=== PATIENT | female | born 1980 | race Caucasian/White ===

== ENCOUNTER 2019-09-21 07:01 | Inpatient (IN) | payer MEDICAID ==
[2019-09-21] MEDS ORDERED: Nalbuphine 10 MG/ML Syringe IVPUSH PRN (07:52)
[2019-09-21] MEDS ORDERED: Acetaminophen 325 MG Tab PO PRN ×2 (07:52→23:09)
[2019-09-21] MEDS ORDERED: Sodium Chloride 0.9% 10 ML Syringe FLUSH PRN (07:52)
[2019-09-21] MEDS ORDERED: Oxytocin/Lactated Ringers 10 UNIT/1,000 ML BAG IV SCH ×2 (08:00→23:15)
[2019-09-21] MEDS: Lactated Ringers 1,000 ML IV SCH ×3 (08:16→21:40)
--- NOTE | 2019-09-21 08:26 | PCM.LDHP ---
L&D History of Present Illness - General Admit Problem/Dx: Patient Status Order with Admit Dx/Problem 09/21/19 07:52 Patient Status [ADT] Routine Admission Diagnosis/Problem Admission Diagnosis/Problem 39 weeks gestation of Source of Information: Patient History Limitations: Reports: No Limitations - History of Present Illness Introduction:: Kathy Ty is a 38 year old -0-0-3 at 39 weeks 0 days by a 6-week ultrasound ([facility] 09/28/2019) who presents for elective induction of labor. She reports that since her last visit she has had some occasional contractions but nothing regular or consistent. Denies any significant pain or strong contractions when she did have these. Denies any leaking of fluid or vaginal bleeding. Reports that she did have some bloody show a couple of days ago but nothing consistent or regular. Reports good movement. Timing/Duration: Reports: intermittent Location, : Reports: Pelvic Quality: Reports: Dull Severity: Mild Pain Score: 0 Associated Symptoms: Denies: vaginal bleeding, vaginal discharge, vaginal fluid Present Illness Comments:: Kathy Ty is a 38 year old -0-0-3 at 39 weeks 0 days by a 6-week ultrasound ([facility] 09/28/2019) who presents for elective induction of labor. She has had routine care with Dr. Moss starting at 9 weeks gestational age. She has been seeing myself for the last month while he has been out of the office. She declined influenza vaccine during the . She received Tdap vaccine on 07/21/2019. Her has been overall uncomplicated. Her has been complicated by: * Advanced maternal age -patient currently age 38 for this and had [employer] genetic screening testing that was normal. * GBS positive -patient with positive GBS swab on exam on 09/07/2019. Plan for ampicillin for antibiotic prophylaxis during induction * Rh- blood type -patient with O- blood type and received RhoGam on 07/07/2019 * Anxiety and depression -patient currently on Lexapro 10 mg daily, reports that she has not been taking it consistently and will miss occasional days here and there. Reports that her symptoms are well controlled at this time. labs Blood type: O- Antibody screen: Negative First trimester hematocrit/hemoglobin: 39.4%/12.8 on 02/23/2019 Platelets: 381 on 02/23/2019 Urine culture: Mixed donavon suggestive of contamination Rubella status: Immune Hepatitis B surface antigen: Negative RPR: Negative HIV: Negative Gonorrhea: Negative Chlamydia: Negative Genetic testing: Normal [facility] genetic screening testing Anatomy ultrasound: Normal anatomy ultrasound, posterior placenta, no previa, 41st percentile at anatomy ultrasound on 05/10/2019 One hour glucose tolerance test: 99 Second trimester hematocrit/hemoglobin: 34.5%/10.9 on 07/07/2019 Platelets: 400 on 07/07/2019 GBS status: Positive on swab on 09/07/2019 - Related Data Allergies/Adverse Reactions: Allergies Allergy/AdvReac Type Severity Reaction Status Date / Time No Known Allergies Allergy Verified 04/20/18 17:40 Home Medications: Home Meds Clindamycin Phosphate 1 dose TOP DAILY 04/20/18 [History] Escitalopram [Lexapro] 10 mg PO DAILY 04/20/18 [History] Minocycline [Minocin] 100 mg PO DAILY 04/20/18 [History] buPROPion [buPROPion XL] 150 mg PO DAILY 04/20/18 [History] desogestreL-ethinyl estradioL [Juleber 28 Day Tablet] 1 tab PO DAILY 04/20/18 [ History] Past Medical History - Past Health History Medical/Surgical History: Denies 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: : 4 Para: 3 Psychiatric History: Reports: Anxiety, Depression Dermatologic History: Reports: Other (See Below) Other Dermatologic History: acne vulgaris Social & Family History - Family History Family Medical History: Noncontributory - Tobacco Use Smoking Status *Q: Never Smoker - Tobacco Core Measures Tobacco Use/Smoking Within Last 30 Days: No Smokeless Tobacco Use in Last 30 Days: No - Caffeine Use Caffeine Use: Reports: Coffee - Alcohol Use Alcohol Use History: No Alcohol Use in Last Twelve Months: No - Recreational Drug Use Recreational Drug Use: No Drug Use in Last 12 Months: No - Living Situation & Occupation Living situation: Reports: Single H&P Review of Systems - Review of Systems: Review Of Systems: See Below General: Denies: Fever, Chills, Malaise, Weakness, Fatigue HEENT: Denies: Headaches, Rhinitis, Post Nasal Drip, Sinus Congestion, Sore Throat, Visual Changes Pulmonary: Denies: Shortness of Breath, Wheezing, Pleuritic Chest Pain, Cough Cardiovascular: Denies: Chest Pain, Palpitations, Dyspnea on Exertion, Orthopnea Gastrointestinal: Denies: Abdominal Pain, Constipation, Diarrhea, Nausea, Vomiting Genitourinary: Denies: Dysuria, Frequency, Burning, Pain, Urgency Musculoskeletal: Reports: Back Pain (and hip pain of ) Skin: Denies: Rash, Lesions Psychiatric: Denies: Depression, Anxiety Hematologic/Lymphatic: Denies: Anemia L&D Exam - Exam Exam: See Below - Vital Signs Vital Signs: Last Vital Signs Temp 36.7 C 09/21/19 07:23 Pulse 83 09/21/19 07:23 Resp 18 09/21/19 07:23 BP 128/84 09/21/19 07:23 Pulse Ox 100 09/21/19 07:23 Weight: 82.1 kg - OB Specific Contraction Duration (sec): 0 Contraction Frequency (min): 0 Contraction Intensity: Irritability Movement: Active Heart Tones: Present Heart Tones per Min: 135 (+15 x 15 accelerations, no decelerations) Heart Rate (FHR) Variability: Moderate (6-25 bmp) Presentation: Vertex Estimated Weight: 7 to 7.5 pounds by Eduardo's - Li Score Li Score Cervix Position: Posterior Li Score Consistency: Medium Li Score Effacement: 51-70% (70%) Li Score Dilation: 1-2 cm (2.5 cm) Li Score Infant's Station: -3 (-4) Li Score Total: 4 - Exam General: Alert, Oriented HEENT: Conjunctiva Clear, EOMI Neck: Supple, Trachea Midline Lungs: Clear to Auscultation, Normal Respiratory Effort Cardiovascular: Regular Rate, Regular Rhythm GI/Abdominal Exam: Soft, Non-Tender, No Distention, Other (gravid). No: Guarding, Rigid, Rebound Genitourinary: Normal external exam Extremities: Normal Inspection, No Pedal Edema Skin: Warm, Dry, Intact Psychiatric: Alert, Normal Affect, Normal Mood - Problem List (1) 39 weeks gestation of SNOMED Code(s): 38506869 ICD Code: Z3A.39 - 39 WEEKS GESTATION OF Status: Acute Current Visit: Yes (2) GBS (group B Streptococcus carrier), +RV culture, currently SNOMED Code(s): 4836170920861, 014972519, 4755523963664 ICD Code: O99.820 - STREPTOCOCCUS B CARRIER STATE COMPLICATING Status: Acute Current Visit: Yes (3) Anxiety SNOMED Code(s): 09018214 ICD Code: F41.9 - ANXIETY DISORDER, UNSPECIFIED Status: Acute Current Visit: Yes (4) Depression SNOMED Code(s): 73608572 ICD Code: F32.9 - MAJOR DEPRESSIVE DISORDER, SINGLE EPISODE, UNSPECIFIED Status: Acute Current Visit: Yes (5) Advanced maternal age in multigravida SNOMED Code(s): 952752766 ICD Code: O09.529 - SUPERVISION OF ELDERLY MULTIGRAVIDA, UNSPECIFIED TRIMESTER Status: Acute Current Visit: Yes Problem List Initiated/Reviewed/Updated: Yes Orders Last 24hrs: Active Orders 24 hr Category Date Time Status Patient Status [ADT] Routine ADT 09/21/19 07:52 Ordered Activity as Tolerated [RC] PFP Care 09/21/19 07:52 Ordered Communication Order [RC] ASDIRECTED Care 09/21/19 07:52 Ordered Heart Tones [RC] ASDIRECTED Care 09/21/19 07:53 Ordered Non Stress Test [RC] PER UNIT ROUTINE Care 09/21/19 07:52 Ordered Notify Provider Vital Signs [RC] PRN Care 09/21/19 07:54 Ordered Notify Provider [RC] PFP Care 09/21/19 07:52 Ordered Notify Provider [RC] PRN Care 09/21/19 07:52 Ordered Peripheral IV Care [RC] . DIRECTED Care 09/21/19 07:53 Ordered Pump Management, Intrathecal [RC] ASDIRECTED Care 09/21/19 07:54 Ordered Vital Signs [RC] PER UNIT ROUTINE Care 09/21/19 07:52 Ordered Regular Diet [DIET] Diet 09/21/19 Breakfast Ordered CBC WITH AUTO DIFF [HEME] Routine Lab 09/21/19 07:52 Ordered RAPID PLASMA REAGIN,RPR [CHEM] Routine Lab 09/21/19 07:52 Ordered Acetaminophen [Tylenol] Med 09/21/19 07:52 Ordered 650 mg PO Q6H PRN Ampicillin 1 gm Med 09/21/19 08:00 Ordered Sodium Chloride 0.9% [Normal Saline] 100 ml IV Q4H Ampicillin 2 gm Med 09/21/19 07:52 Ordered Sodium Chloride 0.9% [Normal Saline] 100 ml IV ONETIME Lactated Ringers [Ringers, Lactated] 1,000 ml Med 09/21/19 08:00 Ordered IV ASDIRECTED Nalbuphine [Nubain] Med 09/21/19 07:52 Ordered 10 mg IVPUSH Q2H PRN Oxytocin/Lactated Ringers [Pitocin in LR 10 Units/1,000 Med 09/21/19 08:00 Ordered ML] 10 unit in 1,000 ml IV .CONTINUOUS Oxytocin/Lactated Ringers [Pitocin in LR 10 Units/1,000 Med 09/21/19 08:00 Ordered ML] 10 unit in 1,000 ml IV TITRATE Sodium Chloride 0.9% [Saline Flush] Med 09/21/19 07:52 Ordered 10 ml FLUSH ASDIRECTED PRN Electronic Heart Tones Ext w TOCO [WOMSER] Oth 09/21/19 07:52 Ordered Routine Electronic Heart Tones Internal [WOMSER] Per Unit Ot 09/21/19 07:52 Ordered Routine Peripheral IV Insertion Adult [OM.PC] Routine Oth 09/21/19 07:52 Ordered Resuscitation Status Routine Resus Stat 09/21/19 07:52 Ordered Medication Orders Acetaminophen (Tylenol) 650 mg PO Q6H PRN PRN Reason: Pain (Mild 1-3) and fever Ampicillin Sodium 2 gm/ Sodium (Chloride) 100 mls @ 200 mls/hr IV ONETIME ONE Stop: 09/21/19 08:59 Ampicillin Sodium 1 gm/ Sodium (Chloride) 100 mls @ 200 mls/hr IV Q4H MUNDO Lactated Ringer's (Ringers, Lactated) 1,000 mls @ 100 mls/hr IV ASDIRECTED MUNDO Last Admin: 09/21/19 08:16 Dose: 100 mls/hr Oxytocin/Lactated Ringer's (Pitocin In Lr 10 Units/1,000 Ml) 10 unit in 1,000 mls @ 12 mls/hr IV TITRATE MUNDO; Protocol Oxytocin/Lactated Ringer's (Pitocin In Lr 10 Units/1,000 Ml) 10 unit in 1,000 mls @ 100 mls/hr IV .CONTINUOUS MUNDO Nalbuphine HCl (Nubain) 10 mg IVPUSH Q2H PRN PRN Reason: Pain Sodium Chloride (Saline Flush) 10 ml FLUSH ASDIRECTED PRN PRN Reason: Keep Vein Open Assessment/Plan Comment:: Refer to observation for elective induction of labor Start Pitocin for induction of labor approximately 1 hour after starting ampicillin for GBS prophylaxis Continuous monitoring Place IV and have Lactated Ringer's at 125 ml/hr May have small amounts of regular diet Activity as tolerated May have epidural as desired Plans to breast-feed after delivery Start on ampicillin 2 g now and have 1 g every 4 hours after for GBS prophylaxis Patient may take her own Lexapro 10 mg daily for depression Anticipate vaginal delivery unless otherwise indicated José Antoino Hannah MD 8:34 AM 09/21/2019
[2019-09-21] MEDS ORDERED: Ampicillin 2 GM in Sodium Chloride 0.9% 100 ML IV ONE (08:30)
[2019-09-21] MEDS: Oxytocin/Lactated Ringers 10 UNIT/1,000 ML BAG IV SCH ×2 (09:19→21:30)
[2019-09-21] MEDS ORDERED: ePHEDrine 50 MG/ML SDV IVPUSH PRN (09:25)
[2019-09-21] MEDS ORDERED: Ondansetron 4 MG/2 ML SDV IVPUSH PRN (09:25)
[2019-09-21] MEDS ORDERED: fentaNYL 100 MCG/2 ML SDV EPIDUR PRN (09:25)
--- NOTE | 2019-09-21 09:27 | PCM.PREANE ---
Preanesthetic Assessment - Anesthesia/Transfusion/Family Hx Anesthesia History: Prior Anesthesia Without Reaction Family History of Anesthesia Reaction: No Transfusion History: No Prior Transfusion(s) Intubation History: Unknown - Review of Systems General: No Symptoms Pulmonary: No Symptoms Cardiovascular: No Symptoms Gastrointestinal: No Symptoms (GERD) Neurological: No Symptoms Other: Reports: None, Depression, Anxiety - Physical Assessment NPO Status Date: 09/21/19 NPO Status Time: 10:30 Vital Signs: Last Vital Signs Temp 36.7 C 09/21/19 07:23 Pulse 83 09/21/19 07:23 Resp 18 09/21/19 07:23 BP 128/84 09/21/19 07:23 Pulse Ox 100 09/21/19 07:23 Height: 1.7 m Weight: 82.1 kg ASA Class: 2 Mental Status: Alert & Oriented x3 Airway Class: Mallampati = 2 Dentition: Reports: Normal Dentition, Caries Thyro-Mental Finger Breadths: 3 Mouth Opening Finger Breadths: 3 ROM/Head Extension: Full Lungs: Clear to Auscultation, Normal Respiratory Effort Cardiovascular: Regular Rate, Regular Rhythm, No Murmurs - Lab Values: Laboratory Last Values WBC 10.04 K/mm3 (3.98-10.04) 09/21/19 08:05 RBC 4.16 M/mm3 (3.98-5.22) 09/21/19 08:05 Hgb 9.8 gm/dl (11.2-15.7) L 09/21/19 08:05 Hct 31.5 % (34.1-44.9) L 09/21/19 08:05 MCV 75.7 fl (79.4-94.8) L 09/21/19 08:05 MCH 23.6 pg (25.6-32.2) L 09/21/19 08:05 MCHC 31.1 g/dl (32.2-35.5) L 09/21/19 08:05 RDW Std Deviation 42.0 fL (36.4-46.3) 09/21/19 08:05 Plt Count 373 K/mm3 (182-369) H 09/21/19 08:05 MPV 9.6 fl (9.4-12.3) 09/21/19 08:05 Neut % (Auto) 65.8 % (34.0-71.1) 09/21/19 08:05 Lymph % (Auto) 23.1 % (19.3-51.7) 09/21/19 08:05 Worth % (Auto) 7.5 % (4.7-12.5) 09/21/19 08:05 Eos % (Auto) 2.9 (0.7-5.8) 09/21/19 08:05 Baso % (Auto) 0.2 % (0.1-1.2) 09/21/19 08:05 Neut # (Auto) 6.61 K/mm3 (1.56-6.13) H 09/21/19 08:05 Lymph # (Auto) 2.32 K/mm3 (1.18-3.74) 09/21/19 08:05 Worth # (Auto) 0.75 K/mm3 (0.24-0.36) H 09/21/19 08:05 Eos # (Auto) 0.29 K/mm3 (0.04-0.36) 09/21/19 08:05 Baso # (Auto) 0.02 K/mm3 (0.01-0.08) 09/21/19 08:05 Above labs reviewed and noted and within acceptable ranges to proceed with epidural if desired. - Allergies Allergies/Adverse Reactions: Allergies Allergy/AdvReac Type Severity Reaction Status Date / Time No Known Allergies Allergy Verified 04/20/18 17:40 - Anesthesia Plan Pre-Op Medication Ordered: None - Acknowledgements Anesthesia Type Planned: Epidural Pt an Appropriate Candidate for the Planned Anesthesia: Yes Alternatives and Risks of Anesthesia Discussed w Pt/Guardian: Yes Pt/Guardian Understands and Agrees with Anesthesia Plan: Yes PreAnesthesia Questionnaire - Past Health History Medical/Surgical History: Denies Medical/Surgical History RN TRANSITIONAL History: Reports: Psychiatric History: Reports: Anxiety, Depression Dermatologic History: Reports: Other (See Below) Other Dermatologic History: acne vulgaris - SUBSTANCE USE Smoking Status *Q: Never Smoker Tobacco Use Within Last Twelve Months: Cigarettes Second Hand Smoke Exposure: No Recreational Drug Use History: No - HOME MEDS Home Medications: Home Meds Clindamycin Phosphate 1 dose TOP DAILY 04/20/18 [History] Escitalopram [Lexapro] 10 mg PO DAILY 04/20/18 [History] Minocycline [Minocin] 100 mg PO DAILY 04/20/18 [History] buPROPion [buPROPion XL] 150 mg PO DAILY 04/20/18 [History] desogestreL-ethinyl estradioL [Juleber 28 Day Tablet] 1 tab PO DAILY 04/20/18 [ History] - CURRENT (IN HOUSE) MEDS Current Meds: Current Medications Acetaminophen (Tylenol) 650 mg PO Q6H PRN PRN Reason: Pain (Mild 1-3) and fever Ampicillin Sodium 1 gm/ Sodium (Chloride) 100 mls @ 200 mls/hr IV Q4H MUNDO Lactated Ringer's (Ringers, Lactated) 1,000 mls @ 100 mls/hr IV ASDIRECTED MUNDO Last Admin: 09/21/19 08:16 Dose: 100 mls/hr Oxytocin/Lactated Ringer's (Pitocin In Lr 10 Units/1,000 Ml) 10 unit in 1,000 mls @ 12 mls/hr IV TITRATE MUNDO; Protocol Last Admin: 09/21/19 09:19 Dose: 2 munits/min, 12 mls/hr Oxytocin/Lactated Ringer's (Pitocin In Lr 10 Units/1,000 Ml) 10 unit in 1,000 mls @ 100 mls/hr IV .CONTINUOUS MUNDO Nalbuphine HCl (Nubain) 10 mg IVPUSH Q2H PRN PRN Reason: Pain Sodium Chloride (Saline Flush) 10 ml FLUSH ASDIRECTED PRN PRN Reason: Keep Vein Open Discontinued Medications Ampicillin Sodium 2 gm/ Sodium (Chloride) 100 mls @ 200 mls/hr IV ONETIME ONE Stop: 09/21/19 08:59 Last Admin: 09/21/19 08:18 Dose: 200 mls/hr
[2019-09-21] MEDS ORDERED: Bupivacaine/fentaNYL/NS 100 ML Bag EPIDUR SCH (09:30)
[2019-09-21] MEDS: Ampicillin 1 GM in Sodium Chloride 0.9% 100 ML IV SCH ×3 (12:25→20:20)
--- NOTE | 2019-09-21 13:45 | PCM.PNLD ---
Labor Progress Note - VS & Meds Vital Signs: Last Vital Signs Temp 36.7 C 09/21/19 07:23 Pulse 83 09/21/19 07:23 Resp 18 09/21/19 07:23 BP 128/84 09/21/19 07:23 Pulse Ox 100 09/21/19 07:23 Active Medications: Current Medications Acetaminophen (Tylenol) 650 mg PO Q6H PRN PRN Reason: Pain (Mild 1-3) and fever Ephedrine Sulfate (Ephedrine Sulfate) 5 mg IVPUSH ASDIRECTED PRN PRN Reason: Hypotension Fentanyl (Sublimaze) 100 mcg EPIDUR Q3H PRN PRN Reason: Pain Fentanyl/Bupivacaine HCl (Fentanyl/Bupivacaine/Ns 2 Mcg-0.125% 100 Ml) 100 ml EPIDUR ASDIRECTED MUNDO Ampicillin Sodium 1 gm/ Sodium (Chloride) 100 mls @ 200 mls/hr IV Q4H MUNDO Last Admin: 09/21/19 12:25 Dose: 200 mls/hr Lactated Ringer's (Ringers, Lactated) 1,000 mls @ 100 mls/hr IV ASDIRECTED MUNDO Last Admin: 09/21/19 08:16 Dose: 100 mls/hr Oxytocin/Lactated Ringer's (Pitocin In Lr 10 Units/1,000 Ml) 10 unit in 1,000 mls @ 12 mls/hr IV TITRATE MUNDO; Protocol Last Titration: 09/21/19 13:16 Dose: 12 munits/min, 72 mls/hr Oxytocin/Lactated Ringer's (Pitocin In Lr 10 Units/1,000 Ml) 10 unit in 1,000 mls @ 100 mls/hr IV .CONTINUOUS MUNDO Nalbuphine HCl (Nubain) 10 mg IVPUSH Q2H PRN PRN Reason: Pain Ondansetron HCl (Zofran) 4 mg IVPUSH ONETIME PRN PRN Reason: Nausea/Vomiting Sodium Chloride (Saline Flush) 10 ml FLUSH ASDIRECTED PRN PRN Reason: Keep Vein Open Discontinued Medications Ampicillin Sodium 2 gm/ Sodium (Chloride) 100 mls @ 200 mls/hr IV ONETIME ONE Stop: 09/21/19 08:59 Last Admin: 09/21/19 08:18 Dose: 200 mls/hr - Uterine Contractions Uterine Monitoring Mode: External Guttenberg Contraction Frequency (min): 1-2 Contraction Duration (sec): 45 Contraction Intensity: Mild to Moderate Uterine Resting Tone: Soft - Monitoring Monitor Mode: Doppler/Auscultation Heart Rate (FHR) Baseline: 130 Heart Rate (FHR) Per Doppler: 130 Heart Rate (FHR) Variability: Moderate (6-25 bmp) Accelerations: Present, 15x15 Decelerations: None Strip Review: Category I - Vaginal Exam Dilation (cm): 3.5 Effacement (Percent): 80 Station: -3 Cervical Position: Anterior Sterile Vaginal Exam Performed By: José Antonio Hannah Vaginal Exam Comment: Artificial rupture membranes with return of clear fluid. Mother and tolerated procedure without difficulty. - Labor Progress (Free Text) Labor Progress: Patient continuing to make progression with induction of labor Continue ampicillin for GBS prophylaxis Continue Pitocin for induction of labor Routine vitals Continues monitoring now that she has had artificial rupture of membranes Clear fluid on artificial rupture membranes performed Patient may have epidural for anesthesia if desired, patient may also use other forms of anesthesia as desired Anticipate vaginal delivery unless otherwise indicated José Antonio Hannah MD 1:44 PM 09/21/2019
[2019-09-21] MEDS ORDERED: Lidocaine 1% 50 ML MDV ONE (22:32)
[2019-09-21] MEDS ORDERED: Lidocaine 1% 10 ML MDV INJECT ONE (22:51)
[2019-09-21] MEDS ORDERED: Hydrocortisone Acetate 25 MG Supp RECTAL PRN (23:09)
[2019-09-21] MEDS ORDERED: Witch Hazel Medicated Pads 40/Jar TOP PRN (23:09)
[2019-09-21] MEDS ORDERED: Benzocaine/Menthol 20%-0.5% Spray 56 GM Canister TOP PRN (23:09)
[2019-09-21] MEDS ORDERED: Magnesium Hydroxide 400 MG/5 ML Susp 30 ML Cup PO PRN (23:09)
[2019-09-21] MEDS ORDERED: Docusate Sodium 100 MG Cap PO PRN (23:09)
[2019-09-21] MEDS ORDERED: Lanolin 100% Cream 7 GM Tube TOP PRN (23:09)
--- NOTE | 2019-09-21 23:13 | PCM.DEL ---
L & D Note - General Info Date of Service: 09/21/19 Mother's Due Date: 09/28/19 - Delivery Note Labor: Augmented by ARM, Induced by Oxytocin Cervical Ripening Method: Oxytocin Delivery Method: Spontaneous Vaginal Delivery-Single Presentation: Right Occiput Anterior (PATRICIA) Nuchal Cord: Present (x1, not reduced prior to delivery) Prep: Povidone-Iodine (Betadine Anesthesia Type: Local Anesthetic: Lidocaine (Xylocaine) 1% Plain Local Anesthetic Volume: Other (20 mL) Amniotic Fluid Description: Clear Episiotomy Type: None Laceration: 2nd Degree (midline perineal laceration, repaired with 3-0 Vicryl) Suture type: Vicryl Suture size: 3-0 Placenta: Intact, Spontaneous Cord: 3 Vessels Estimated Blood Loss: 300 Resuscitation Needed: Yes : Bulb Syringe, Stimulated, Warmed, [place] Used, Warmer Used Provider: José Antonio Hannah Score 1 min: 8 Score 5 min: 9 Second Stage Interventions: Reports: Pushing, Pulls Own Legs Back Delivery Comments (Free Text/Narrative):: Stage I: Kathy Ty was admitted for elective induction of labor. On admission her cervix was dilated to 2.5 cm. She was GBS positive and was started on ampicillin for GBS prophylaxis. She received a total of 3 doses prior to delivery. She was started on Pitocin for induction of labor. She had artificial rupture of membranes with return of clear fluid. She progressed to complete and pushing. Stage II: On 09/21/2019 she had a normal vaginal delivery of a live male infant at 22:30. Apgars of 8 & 9. Weight of 3130 g (6 lbs 14.4 oz). Length of 20 inches. There was a single nuchal cord that was not reduced prior to delivery. was delivered in PATRICIA position. The cord was doubly clamped and cut by grandmother of the . was placed on mother's abdomen. Stage III: She had a spontaneous delivery of an intact placenta in [place] presentation. Three vessel cord. She was given pitocin and fundal massage. She had a second-degree midline perineal laceration. She had injection of 1% lidocaine for local anesthesia during the repair. The laceration was repaired with 3-0 Vicryl. Mom and baby were stable to recovery. EBL of 300 mL. José Antonio Hannah MD 11:09 PM 09/21/2019 Induction Criteria - Li Score Li Score Dilation: 1-2 cm Li Score Effacement: 60-70% Li Score Infant's Station: -3 Li Score Consistency: Medium Li Score Cervix Position: Posterior Li Score Total: 4 Li Score Presenting Part: Reports: Cephalic - Induction Gestational Age >/= 39 wks: Yes Estimated Pelvis: Reports: Adequate Reassuring Monitoring Strip: Yes Absence of Tachy Systole: Yes - Augmentation Estimated Pelvis: Reports: Adequate Weight Estimated:: Reports: AGA Reassuring Monitoring Strip: Yes Absence of Tachy Systole: Yes - General Info Date of Service: 09/21/19 - Patient Data Vitals - Most Recent: Last Vital Signs Temp 36.7 C 09/21/19 07:23 Pulse 83 09/21/19 07:23 Resp 18 09/21/19 07:23 BP 128/84 09/21/19 07:23 Pulse Ox 100 09/21/19 07:23 Weight - Most Recent: 82.1 kg I&O - Last 24 Hours: Intake & Output 09/21/19 09/21/19 09/22/19 14:59 22:59 06:59 Intake Total 520 3520 Balance 520 3520 Lab Results Last 24 Hours: Laboratory Results - last 24 hr 09/21/19 09/21/19 Range/Units 08:05 08:05 WBC 10.04 (3.98-10.04) K/mm3 RBC 4.16 (3.98-5.22) M/mm3 Hgb 9.8 L (11.2-15.7) gm/dl Hct 31.5 L (34.1-44.9) % MCV 75.7 L (79.4-94.8) fl MCH 23.6 L (25.6-32.2) pg MCHC 31.1 L (32.2-35.5) g/dl RDW Std Deviation 42.0 (36.4-46.3) fL Plt Count 373 H (182-369) K/mm3 MPV 9.6 (9.4-12.3) fl Neut % (Auto) 65.8 (34.0-71.1) % Lymph % (Auto) 23.1 (19.3-51.7) % [place] % (Auto) 7.5 (4.7-12.5) % Eos % (Auto) 2.9 (0.7-5.8) Baso % (Auto) 0.2 (0.1-1.2) % Neut # (Auto) 6.61 H (1.56-6.13) K/mm3 Lymph # (Auto) 2.32 (1.18-3.74) K/mm3 [place] # (Auto) 0.75 H (0.24-0.36) K/mm3 Eos # (Auto) 0.29 (0.04-0.36) K/mm3 Baso # (Auto) 0.02 (0.01-0.08) K/mm3 RPR Non-reactive (NONREACTIVE) Med Orders - Current: Current Medications Discontinued Medications Acetaminophen (Tylenol) 650 mg PO Q6H PRN PRN Reason: Pain (Mild 1-3) and fever Ephedrine Sulfate (Ephedrine Sulfate) 5 mg IVPUSH ASDIRECTED PRN PRN Reason: Hypotension Fentanyl (Sublimaze) 100 mcg EPIDUR Q3H PRN PRN Reason: Pain Fentanyl/Bupivacaine HCl (Fentanyl/Bupivacaine/Ns 2 Mcg-0.125% 100 Ml) 100 ml EPIDUR ASDIRECTED MUNDO Ampicillin Sodium 2 gm/ Sodium (Chloride) 100 mls @ 200 mls/hr IV ONETIME ONE Stop: 09/21/19 08:59 Last Admin: 09/21/19 08:18 Dose: 200 mls/hr Ampicillin Sodium 1 gm/ Sodium (Chloride) 100 mls @ 200 mls/hr IV Q4H [facility] Last Admin: 09/21/19 20:20 Dose: 200 mls/hr Lactated Ringer's (Ringers, Lactated) 1,000 mls @ 100 mls/hr IV ASDIRECTED MUNDO Last Admin: 09/21/19 21:40 Dose: 100 mls/hr Oxytocin/Lactated Ringer's (Pitocin In Lr 10 Units/1,000 Ml) 10 unit in 1,000 mls @ 12 mls/hr IV TITRATE MUNDO; Protocol Last Admin: 09/21/19 21:30 Dose: 20 munits/min, 120 mls/hr Oxytocin/Lactated Ringer's (Pitocin In Lr 10 Units/1,000 Ml) 10 unit in 1,000 mls @ 100 mls/hr IV .CONTINUOUS MUNDO Lidocaine HCl (Xylocaine 1%) Confirm Administered Dose 50 ml .ROUTE .STK-MED ONE Stop: 09/21/19 22:33 Last Admin: 09/21/19 22:35 Dose: 50 ml Lidocaine HCl (Xylocaine 1%) 50 ml INJECT ONETIME ONE Stop: 09/21/19 22:52 Nalbuphine HCl (Nubain) 10 mg IVPUSH Q2H PRN PRN Reason: Pain Last Admin: 09/21/19 21:25 Dose: 10 mg Ondansetron HCl (Zofran) 4 mg IVPUSH ONETIME PRN PRN Reason: Nausea/Vomiting Sodium Chloride (Saline Flush) 10 ml FLUSH ASDIRECTED PRN PRN Reason: Keep Vein Open - Problem List & Annotations (1) 39 weeks gestation of SNOMED Code(s): 34927115 Code(s): Z3A.39 - 39 WEEKS GESTATION OF Status: Acute Current Visit: Yes (2) GBS (group B Streptococcus carrier), +RV culture, currently SNOMED Code(s): 8916925263074, 516727721, 5014881328647 Code(s): O99.820 - STREPTOCOCCUS B CARRIER STATE COMPLICATING Status: Acute Current Visit: Yes (3) Anxiety SNOMED Code(s): 19825612 Code(s): F41.9 - ANXIETY DISORDER, UNSPECIFIED Status: Acute Current Visit: Yes (4) Depression SNOMED Code(s): 17280714 Code(s): F32.9 - MAJOR DEPRESSIVE DISORDER, SINGLE EPISODE, UNSPECIFIED Status: Acute Current Visit: Yes (5) Advanced maternal age in multigravida SNOMED Code(s): 919647638 Code(s): O09.529 - SUPERVISION OF ELDERLY MULTIGRAVIDA, UNSPECIFIED TRIMESTER Status: Acute Current Visit: Yes (6) Rh negative status during SNOMED Code(s): 725538248 Code(s): O26.899 - OTH RELATED CONDITIONS, UNSPECIFIED TRIMESTER; Z67.91 - UNSPECIFIED BLOOD TYPE, RH NEGATIVE Status: Acute Current Visit: Yes (7) Vaginal delivery SNOMED Code(s): 826519443 Code(s): O80 - ENCOUNTER FOR FULL-TERM UNCOMPLICATED DELIVERY Status: Acute Current Visit: Yes (8) Second degree perineal laceration during delivery SNOMED Code(s): 0519284 Code(s): O70.1 - SECOND DEGREE PERINEAL LACERATION DURING DELIVERY Status: Acute Current Visit: Yes - Problem List Review Problem List Initiated/Reviewed/Updated: Yes - My Orders Last 24 Hours: My Active Orders 09/21/19 07:52 Activity as Tolerated [RC] PFP Communication Order [RC] ASDIRECTED Vital Signs [RC] PER UNIT ROUTINE Nalbuphine [Nubain] 10 mg IVPUSH Q2H PRN Sodium Chloride 0.9% [Saline Flush] 10 ml FLUSH ASDIRECTED PRN Resuscitation Status Routine 09/21/19 07:53 Peripheral IV Care [RC] . DIRECTED 09/21/19 07:54 Pump Management, Intrathecal [RC] ASDIRECTED 09/21/19 08:00 Lactated Ringers [Ringers, Lactated] 1,000 ml IV ASDIRECTED Oxytocin/Lactated Ringers [Pitocin in LR 10 Units/1,000 ML] 10 unit in 1,000 ml IV .CONTINUOUS Oxytocin/Lactated Ringers [Pitocin in LR 10 Units/1,000 ML] 10 unit in 1,000 ml IV TITRATE 09/21/19 12:30 Ampicillin 1 gm Sodium Chloride 0.9% [Normal Saline] 100 ml IV Q4H 09/21/19 22:51 Lidocaine 1% [Xylocaine 1%] 50 ml INJECT ONETIME ONE 09/21/19 23:09 Patient Status [ADT] Routine Activity as Tolerated [RC] PER UNIT ROUTINE May Shower [RC] ASDIRECTED Notify Provider Vital Signs [RC] ASDIRECTED Vital Signs [RC] ASDIRECTED Acetaminophen [Tylenol] 650 mg PO Q6H PRN Benzocaine/Menthol [Dermoplast Pain Relief [place]] See Dose Instructions TOP ASDIRECTED PRN Docusate Sodium [Colace] 100 mg PO BID PRN Hydrocortisone Acetate [Anucort-HC] 25 mg RECTAL BID PRN Ibuprofen [Motrin] 600 mg PO Q6H PRN Lanolin [Lansinoh HPA] See Dose Instructions TOP ASDIRECTED PRN Magnesium Hydroxide [Milk of Magnesia] 30 ml PO BEDTIME PRN witch Femi [Tucks] 1 pad TOP ASDIRECTED PRN Assess Lochia [WOMSER] Per Unit Routine Assess Uterine Involution [WOMSER] Per Unit Routine Breast Pump [WOMSER] Per Unit Routine Ice Therapy [OM.PC] Per Unit Routine Medication Administration Instruction [OM.PC] Routine Perineal Care [OM.PC] Per Unit Routine Peripheral IV Discontinue [OM.PC] Routine Sitz Bath [OM.PC] Per Unit Routine 09/21/19 23:15 Oxytocin/Lactated Ringers [Pitocin in LR 10 Units/1,000 ML] 10 unit in 1,000 ml IV TITRATE Heat Therapy [OM.PC] PRN 09/21/19 Dinner Regular Diet [DIET] 09/22/19 05:11 CBC WITH AUTO DIFF [HEME] AM 09/22/19 07:00 Ferrous Sulfate 324 mg PO BIDMEALS 09/22/19 09:00 Vit with Ca/FA/Iron [ Plus Iron] 1 each PO DAILY 09/22/19 23:15 Heat Therapy [OM.PC] PRN - Plan Plan:: Admit to inpatient following normal spontaneous vaginal delivery Continue Pitocin per unit protocol following delivery of placenta and lactated Ringer's until tolerating regular diet Regular diet Vitals per unit routine Ibuprofen and Tylenol for pain control Assist with bottlefeeding as needed Continue to monitor lochia Mom with O- blood type. Plan for RhoGam administration if has Rh+ blood type. Anticipate discharge home on day #2 José Antonio Hannah MD 11:09 PM 09/21/2019
[2019-09-22] MEDS: Ibuprofen 600 MG Tab PO PRN ×2 (04:21→21:22)
[2019-09-22] MEDS: Prenatal Multivitamin with Calcium/Folic Acid/Iron Tab PO SCH (08:21)
[2019-09-22] MEDS: Ferrous Sulfate 324 MG Tab.EC PO SCH ×2 (08:24→19:33)
--- NOTE | 2019-09-22 09:24 | PCM.SN.2 ---
- Free Text/Narrative Note: Post Progress Note PPD #1 Subjective: Doing well overall. Ambulating without difficulty. Lochia minimal. Voiding without difficulty. Tolerating regular diet without nausea or vomiting. Pain controlled with oral medications. Bottlefeeding with minimal difficulty. She reports that the is spitting up occasionally with feeding. Objective: Vitals: Vital Signs - 8 hr 09/22/19 09/22/19 04:20 08:22 Temperature 36.8 C 36.8 C Pulse, 63 70 Peripheral Respiratory 16 16 Rate Blood Pressure 118/64 137/85 O2 Sat by Pulse 99 99 Oximetry Physical Exam General: Alert and oriented, no acute distress Lungs: Clear to auscultation bilaterally Heart: Regular rate and rhythm Abdomen: Soft, minimal appropriate tenderness, non-distended, fundus midline, nontender, and 1 fingerbreadth below the umbilicus Extremities: No edema ASSESSMENT: 38-year-old female -0-0-4 s/p normal vaginal delivery PPD #1, complicated by GBS positive and received 4 doses of antibiotic prior to delivery, Rh- blood type, anxiety and depression and advanced maternal age PLAN: Doing well Bottlefeeding with minimal difficulty. Assist as needed Lochia minimal. Continue to monitor for appropriate lochia. Continue routine care Patient with O- blood type and with O+ blood type. Patient to receive RhoGam prior to discharge Patient may take Lexapro 10 mg daily for her anxiety and depression Patient's hemoglobin this morning was at 9.2 which is a drop from 9.8 on admission. Patient is asymptomatic from this blood loss. Do not expect need for transfusion. Anticipate discharge home tomorrow secondary to late timing of delivery of José Antonio Hannah MD 9:22 AM 09/22/2019
--- NOTE | 2019-09-23 07:43 | PCM.SN.2 ---
- Free Text/Narrative Note: Post Progress Note PPD #2 Subjective: Doing well overall. Ambulating without difficulty. Lochia minimal. Voiding without difficulty. Tolerating regular diet without nausea or vomiting. Pain controlled with oral medications. Reports some mild cramping last evening but improved with ibuprofen. Bottlefeeding with minimal difficulty. Objective: Vitals: Vital Signs - 24 hr 09/22/19 09/22/19 09/22/19 08:22 13:20 18:37 Temperature 36.8 C 36.8 C 36.6 C Temperature [ Temporal] Pulse, 70 68 69 Peripheral Pulse, Peripheral [ Pulse Oximetry] Respiratory 16 16 15 Rate Blood Pressure 137/85 113/70 118/82 Blood Pressure [Upper Arm] O2 Sat by Pulse 99 98 99 Oximetry 09/22/19 09/22/19 09/23/19 18:42 21:15 03:46 Temperature 36.8 C 36.7 C Temperature [ 36.6 C Temporal] Pulse, 61 67 Peripheral Pulse, 69 Peripheral [ Pulse Oximetry] Respiratory 15 15 15 Rate Blood Pressure 126/72 126/88 Blood Pressure 118/82 [Upper Arm] O2 Sat by Pulse 98 99 100 Oximetry Physical Exam General: Alert and oriented, no acute distress Lungs: Clear to auscultation bilaterally Heart: Regular rate and rhythm Abdomen: Soft, minimal appropriate tenderness, non-distended, fundus midline, nontender, and 2 fingerbreadths below the umbilicus Extremities: No edema ASSESSMENT: 38-year-old female -0-0-4 s/p normal vaginal delivery PPD #2, complicated by GBS positive and received 4 doses of antibiotic prior to delivery, Rh- blood type, anxiety and depression and advanced maternal age PLAN: Doing well Bottlefeeding with minimal difficulty. Assist as needed Lochia minimal. Continue to monitor for appropriate lochia. Continue routine care Patient with O- blood type and infant with O+ blood type. Patient received RhoGam on PPD #1 Patient may take Lexapro 10 mg daily for her anxiety and depression Discharge home today José Antonio Hannah MD 7:41 AM 09/23/2019
--- NOTE | 2019-09-23 07:49 | PCM.DCSUM1 ---
Discharge Summary - Hospital Course Free Text/Narrative:: - General Info Date of Service: 09/21/19 Mother's Due Date: 09/28/19 - Delivery Note Labor: Augmented by ARM, Induced by Oxytocin Cervical Ripening Method: Oxytocin Delivery Method: Spontaneous Vaginal Delivery-Single Presentation: Right Occiput Anterior (PATRICIA) Nuchal Cord: Present (x1, not reduced prior to delivery) Prep: Povidone-Iodine (Betadine Anesthesia Type: Local Anesthetic: Lidocaine (Xylocaine) 1% Plain Local Anesthetic Volume: Other (20 mL) Amniotic Fluid Description: Clear Episiotomy Type: None Laceration: 2nd Degree (midline perineal laceration, repaired with 3-0 Vicryl) Suture type: Vicryl Suture size: 3-0 Placenta: Intact, Spontaneous Cord: 3 Vessels Estimated Blood Loss: 300 Resuscitation Needed: Yes [place]: Bulb Syringe, Stimulated, Warmed, [place] Used, Warmer Used Provider: José Antonio Hannah Score 1 min: 8 Score 5 min: 9 Second Stage Interventions: Reports: Pushing, Pulls Own Legs Back Delivery Comments (Free Text/Narrative):: Stage I: Kathy Ty was admitted for elective induction of labor. On admission her cervix was dilated to 2.5 cm. She was GBS positive and was started on ampicillin for GBS prophylaxis. She received a total of 3 doses prior to delivery. She was started on Pitocin for induction of labor. She had artificial rupture of membranes with return of clear fluid. She progressed to complete and pushing. Stage II: On 09/21/2019 she had a normal vaginal delivery of a live male infant at 22:30. Apgars of 8 & 9. Weight of 3130 g (6 lbs 14.4 oz). Length of 20 inches. There was a single nuchal cord that was not reduced prior to delivery. was delivered in PATRICIA position. The cord was doubly clamped and cut by grandmother of the infant. was placed on mother's abdomen. Stage III: She had a spontaneous delivery of an intact placenta in [place] presentation. Three vessel cord. She was given pitocin and fundal massage. She had a second-degree midline perineal laceration. She had injection of 1% lidocaine for local anesthesia during the repair. The laceration was repaired with 3-0 Vicryl. Mom and baby were stable to recovery. EBL of 300 mL. HPI Initial Comments: - General Info Date of Service: 09/21/19 Mother's Due Date: 09/28/19 - Delivery Note Labor: Augmented by ARM, Induced by Oxytocin Cervical Ripening Method: Oxytocin Delivery Method: Spontaneous Vaginal Delivery-Single Presentation: Right Occiput Anterior (PATRICIA) Nuchal Cord: Present (x1, not reduced prior to delivery) Prep: Povidone-Iodine (Betadine Anesthesia Type: Local Anesthetic: Lidocaine (Xylocaine) 1% Plain Local Anesthetic Volume: Other (20 mL) Amniotic Fluid Description: Clear Episiotomy Type: None Laceration: 2nd Degree (midline perineal laceration, repaired with 3-0 Vicryl) Suture type: Vicryl Suture size: 3-0 Placenta: Intact, Spontaneous Cord: 3 Vessels Estimated Blood Loss: 300 Resuscitation Needed: Yes [place]: Bulb Syringe, Stimulated, Warmed, [place] Used, Warmer Used Provider: José Antonio Hannah Score 1 min: 8 Score 5 min: 9 Second Stage Interventions: Reports: Pushing, Pulls Own Legs Back Delivery Comments (Free Text/Narrative):: Stage I: Kathy Ty was admitted for elective induction of labor. On admission her cervix was dilated to 2.5 cm. She was GBS positive and was started on ampicillin for GBS prophylaxis. She received a total of 3 doses prior to delivery. She was started on Pitocin for induction of labor. She had artificial rupture of membranes with return of clear fluid. She progressed to complete and pushing. Stage II: On 09/21/2019 she had a normal vaginal delivery of a live male infant at 22:30. Apgars of 8 & 9. Weight of 3130 g (6 lbs 14.4 oz). Length of 20 inches. There was a single nuchal cord that was not reduced prior to delivery. Infant was delivered in PATRICIA position. The cord was doubly clamped and cut by grandmother of the . Infant was placed on mother's abdomen. Stage III: She had a spontaneous delivery of an intact placenta in [place] presentation. Three vessel cord. She was given pitocin and fundal massage. She had a second-degree midline perineal laceration. She had injection of 1% lidocaine for local anesthesia during the repair. The laceration was repaired with 3-0 Vicryl. Mom and baby were stable to recovery. EBL of 300 mL. Brief History: - General Info. Date of Service: 09/21/19. Mother's Due Date: 09/28/19. - Delivery Note. Labor: Augmented by ARM, Induced by Oxytocin. Cervical Ripening Method: Oxytocin. Delivery Method: Spontaneous Vaginal Delivery-Single. Presentation: Right Occiput Anterior (PATRICIA). Nuchal Cord: Present (x1, not reduced prior to delivery). Prep: Povidone- Iodine (Betadine. Anesthesia Type: Local. Anesthetic: Lidocaine (Xylocaine) 1 % Plain. Local Anesthetic Volume: Other (20 mL). Amniotic Fluid Description: Clear. Episiotomy Type: None. Laceration: 2nd Degree (midline perineal laceration, repaired with 3-0 Vicryl). Suture type: Vicryl. Suture size: 3-0. Placenta: Intact, Spontaneous. Cord: 3 Vessels. Estimated Blood Loss: 300. Resuscitation Needed: Yes. [place]: Bulb Syringe, Stimulated, Warmed, [place] Used, Warmer Used. Provider: José Antonio Hannah. Score 1 min: 8. Score 5 min: 9. Second Stage Interventions: Reports: Pushing, Pulls Own Legs Back. Delivery Comments (Free Text/Narrative):: Stage I: Kathy Ty was admitted for elective induction of labor. On admission her cervix was dilated to 2.5 cm. She was GBS positive and was started on ampicillin for GBS prophylaxis. She received a total of 3 doses prior to delivery. She was started on Pitocin for induction of labor. She had artificial rupture of membranes with return of clear fluid. She progressed to complete and pushing. Stage II: On 09/21/2019 she had a normal vaginal delivery of a live male infant at 22:30. Apgars of 8 & 9. Weight of 3130 g (6 lbs 14.4 oz). Length of 20 inches. There was a single nuchal cord that was not reduced prior to delivery. Infant was delivered in PATRICIA position. The cord was doubly clamped and cut by grandmother of the infant. Infant was placed on mother's abdomen. Stage III: She had a spontaneous delivery of an intact placenta in [place] presentation. Three vessel cord. She was given pitocin and fundal massage. She had a second- degree midline perineal laceration. She had injection of 1% lidocaine for local anesthesia during the repair. The laceration was repaired with 3-0 Vicryl. Mom and baby were stable to recovery. EBL of 300 mL. Diagnosis: Stroke: No - Discharge Data Discharge Date: 09/23/19 Discharge Disposition: Home, Self-Care 01 Condition: Good - Referral to Home Health Primary Care Physician: José Antonio Hannah MD - Discharge Diagnosis/Problem(s) (1) 39 weeks gestation of SNOMED Code(s): 93756241 ICD Code: Z3A.39 - 39 WEEKS GESTATION OF Status: Acute Current Visit: Yes (2) GBS (group B Streptococcus carrier), +RV culture, currently SNOMED Code(s): 1509763804189, 038809289, 1160102144877 ICD Code: O99.820 - STREPTOCOCCUS B CARRIER STATE COMPLICATING Status: Acute Current Visit: Yes (3) Anxiety SNOMED Code(s): 91439161 ICD Code: F41.9 - ANXIETY DISORDER, UNSPECIFIED Status: Acute Current Visit: Yes (4) Depression SNOMED Code(s): 10211868 ICD Code: F32.9 - MAJOR DEPRESSIVE DISORDER, SINGLE EPISODE, UNSPECIFIED Status: Acute Current Visit: Yes (5) Advanced maternal age in multigravida SNOMED Code(s): 215744994 ICD Code: O09.529 - SUPERVISION OF ELDERLY MULTIGRAVIDA, UNSPECIFIED TRIMESTER Status: Acute Current Visit: Yes (6) Rh negative status during SNOMED Code(s): 541049821 ICD Code: O26.899 - OTH RELATED CONDITIONS, UNSPECIFIED TRIMESTER; Z67.91 - UNSPECIFIED BLOOD TYPE, RH NEGATIVE Status: Acute Current Visit: Yes (7) Vaginal delivery SNOMED Code(s): 576440968 ICD Code: O80 - ENCOUNTER FOR FULL-TERM UNCOMPLICATED DELIVERY Status: Acute Current Visit: Yes (8) Second degree perineal laceration during delivery SNOMED Code(s): 3078137 ICD Code: O70.1 - SECOND DEGREE PERINEAL LACERATION DURING DELIVERY Status : Acute Current Visit: Yes - Patient Summary/Data Complications: None Consults: None Hospital Course: Kathy Ty was admitted for elective induction of labor. On admission her cervix was dilated to 2.5 cm. She was GBS positive and was started on ampicillin for GBS prophylaxis. She received a total of 3 doses prior to delivery. She was given pitocin for augmentation. She had artificial rupture of membranes with clear fluid. She progressed to complete and began pushing. On 09/21/2019 she had a normal vaginal delivery of a live male infant at 22:30. Apgars of 8 and 9. Weight of 3130 g (6 pounds 14.4 ounces). Her course was uneventful. Her pain was well controlled and she had minimal lochia. She was ambulating, tolerating a regular diet and voiding normally. She was bottlefeeding with minimal difficulty. She was afebrile and her hematocrit was 9.7 on the morning of day #1. She desired to be discharged home on the morning of PPD #2. Her blood type is O- and infant has O + blood type. She received RhoGam in the morning of day #1. - Patient Instructions Diet: Regular Diet as Tolerated Activity: Apply Ice, As Tolerated Activity, Other: Nothing in the vagina for 6 weeks Driving: May Drive Today Showering/Bathing: May Shower Notify Provider of: Fever, Increased Pain, Swelling and Redness, Drainage, Nausea and/or Vomiting Other/Special Instructions: Please contact your physician's office if you have heavy vaginal bleeding enough to soak a pad in less than an hour for several hours. Monitor for any signs of an infection in the breasts with severe pain or redness of the breast. - Discharge Plan *PRESCRIPTION DRUG MONITORING PROGRAM REVIEWED*: Not Applicable *COPY OF PRESCRIPTION DRUG MONITORING REPORT IN PATIENT PRASAD: Not Applicable Home Medications: Home Meds Escitalopram [Lexapro] 10 mg PO DAILY 04/20/18 [History] No122/Iron/Folic Acid [ Multi Tablet] 1 09/21/19 [History] Acetaminophen [Tylenol] 650 mg PO Q6H PRN tablet 09/23/19 [Rx] Benzocaine/Menthol [Dermoplast Pain Relief [place]] 1 spray TOP ASDIRECTED PRN canister 09/23/19 [Rx] Docusate Sodium [Colace] 100 mg PO BID PRN cap 09/23/19 [Rx] Ferrous Sulfate 324 mg PO BIDMEALS tab.ec 09/23/19 [Rx] Hydrocortisone Acetate [Anucort-HC] 25 mg RECTAL BID PRN supp 09/23/19 [Rx] Ibuprofen [Motrin] 600 mg PO Q6H PRN tablet 09/23/19 [Rx] Lanolin [Lansinoh HPA] 1 applic TOP ASDIRECTED PRN tube 09/23/19 [Rx] adilson Kahn [Tucks] 1 pad TOP ASDIRECTED PRN pad 09/23/19 [Rx] Patient Handouts: Care of a Perineal Tear, Care After Vaginal Delivery Referrals: José Antonio Hannah MD [Primary Care Provider] - (Follow-up with Dr. Hannah or Dr. Moss in 6 weeks for routine visit or earlier as needed.) - Discharge Summary/Plan Comment DC Time >30 min.: No - Patient Data Vitals - Most Recent: Last Vital Signs Temp 36.7 C 09/23/19 03:46 Pulse 67 09/23/19 03:46 Resp 15 09/23/19 03:46 BP 126/88 09/23/19 03:46 Pulse Ox 100 09/23/19 03:46 Weight - Most Recent: 82.1 kg I&O - Last 24 hours: Intake & Output 09/22/19 09/23/19 09/23/19 22:59 06:59 14:59 Intake Total 2 Balance 2 Lab Results - Last 24 hrs: Laboratory Results - last 24 hr 09/22/19 Range/Units 06:00 Blood Type O NEGATIVE Gel Antibody Screen Positive Screen 0 ros/5 flds - neg RhIG Candidate? Yes Rhogam Indicated Yes, baby rh pos H Med Orders - Current: Current Medications Acetaminophen (Tylenol) 650 mg PO Q6H PRN PRN Reason: mild pain or fever Benzocaine/Menthol (Dermoplast Pain Relief [place]) 0 gm TOP ASDIRECTED PRN PRN Reason: Perineal Comfort Measure Last Admin: 09/22/19 00:30 Dose: 1 can Docusate Sodium (Colace) 100 mg PO BID PRN PRN Reason: Constipation Last Admin: 09/22/19 04:21 Dose: 100 mg Emollient Ointment (Lansinoh Hpa) 0 gm TOP ASDIRECTED PRN PRN Reason: Sore Nipples Ferrous Sulfate (Ferrous Sulfate) 324 mg PO BIDMTALS [facility] Last Admin: 09/22/19 19:33 Dose: 324 mg Hydrocortisone Acetate (Anucort-Hc) 25 mg RECTAL BID PRN PRN Reason: Hemorrhoid pain Oxytocin/Lactated Ringer's (Pitocin In Lr 10 Units/1,000 Ml) 10 unit in 1,000 mls @ 100 mls/hr IV TITRATE MUNDO; Protocol Ibuprofen (Motrin) 600 mg PO Q6H PRN PRN Reason: Mild pain or fever Last Admin: 09/22/19 21:22 Dose: 600 mg Magnesium Hydroxide (Milk Of Magnesia) 30 ml PO BEDTIME PRN PRN Reason: Constipation Prenat Multivit/Freeborn/Iron/Folic Ac ( Plus Iron) 1 each PO DAILY MUNDO Last Admin: 09/22/19 08:21 Dose: 1 each Witch Shala (Tucks) 1 pad TOP ASDIRECTED PRN PRN Reason: Perineal Comfort Measure Last Admin: 09/22/19 00:29 Dose: 1 applic Discontinued Medications Acetaminophen (Tylenol) 650 mg PO Q6H PRN PRN Reason: Pain (Mild 1-3) and fever Ephedrine Sulfate (Ephedrine Sulfate) 5 mg IVPUSH ASDIRECTED PRN PRN Reason: Hypotension Fentanyl (Sublimaze) 100 mcg EPIDUR Q3H PRN PRN Reason: Pain Fentanyl/Bupivacaine HCl (Fentanyl/Bupivacaine/Ns 2 Mcg-0.125% 100 Ml) 100 ml EPIDUR ASDIRECTED MUNDO Ampicillin Sodium 2 gm/ Sodium (Chloride) 100 mls @ 200 mls/hr IV ONETIME ONE Stop: 09/21/19 08:59 Last Admin: 09/21/19 08:18 Dose: 200 mls/hr Ampicillin Sodium 1 gm/ Sodium (Chloride) 100 mls @ 200 mls/hr IV Q4H MUNDO Last Admin: 09/21/19 20:20 Dose: 200 mls/hr Lactated Ringer's (Ringers, Lactated) 1,000 mls @ 100 mls/hr IV ASDIRECTED MUNDO Last Admin: 09/21/19 21:40 Dose: 100 mls/hr Oxytocin/Lactated Ringer's (Pitocin In Lr 10 Units/1,000 Ml) 10 unit in 1,000 mls @ 12 mls/hr IV TITRATE MUNDO; Protocol Last Admin: 09/21/19 21:30 Dose: 20 munits/min, 120 mls/hr Oxytocin/Lactated Ringer's (Pitocin In Lr 10 Units/1,000 Ml) 10 unit in 1,000 mls @ 100 mls/hr IV .CONTINUOUS MUNDO Lidocaine HCl (Xylocaine 1%) Confirm Administered Dose 50 ml .ROUTE .STK-MED ONE Stop: 09/21/19 22:33 Last Admin: 09/21/19 22:35 Dose: 50 ml Lidocaine HCl (Xylocaine 1%) 50 ml INJECT ONETIME ONE Stop: 09/21/19 22:52 Nalbuphine HCl (Nubain) 10 mg IVPUSH Q2H PRN PRN Reason: Pain Last Admin: 09/21/19 21:25 Dose: 10 mg Ondansetron HCl (Zofran) 4 mg IVPUSH ONETIME PRN PRN Reason: Nausea/Vomiting Sodium Chloride (Saline Flush) 10 ml FLUSH ASDIRECTED PRN PRN Reason: Keep Vein Open
[2019-09-23] MEDS: Ferrous Sulfate 324 MG Tab.EC PO SCH (09:13)
[2019-09-23] MEDS: Prenatal Multivitamin with Calcium/Folic Acid/Iron Tab PO SCH (09:13)
== END 2019-09-23 14:11 | disposition home or self-care (01) | DRG 807 ==
LOC: JD.OB 07:01 → OBSVTOIN 22:30 → JD.OB 22:31 → JD.MS 09-23 04:45
PROVIDERS: ADMIT Obstetrics & Gynecology; ATTEND Obstetrics & Gynecology
PROC: 10E0XZZ Delivery of Products of Conception, External Approach (ICD-10-PCS; principal; 2019-09-21)
PROC: 0KQM0ZZ Repair Perineum Muscle, Open Approach (ICD-10-PCS; 2019-09-21)
PROC: 10907ZC Drainage of Amniotic Fluid, Therapeutic from Products of Conception, Via Natural or Artificial Opening (ICD-10-PCS; 2019-09-21)
PROC: 3E033VJ Introduction of Other Hormone into Peripheral Vein, Percutaneous Approach (ICD-10-PCS; 2019-09-21)
PROC: 3E0R3BZ Introduction of Anesthetic Agent into Spinal Canal, Percutaneous Approach (ICD-10-PCS; 2019-09-21)
DX: O99.824 Streptococcus B carrier state complicating childbirth (principal); Z37.0 Single live birth; O69.81X0 Labor and delivery complicated by cord around neck, without compression, not applicable or unspecified; O99.344 Other mental disorders complicating childbirth; F32.9 Major depressive disorder, single episode, unspecified; F41.9 Anxiety disorder, unspecified; O70.1 Second degree perineal laceration during delivery; Z3A.39 39 weeks gestation of pregnancy; Z79.899 Other long term (current) drug therapy
CPT/HCPCS: 36415; 59025; 59409; 85025; 85461; 86592; 86850; 86870; 86900; 86901; A9270-GY; J0290; J2001; J2300; J2590; J2790; J7050; J7120

== ENCOUNTER 2020-08-11 16:40 | Emergency (ER) | payer MEDICAID ==
[2020-08-11] MEDS ORDERED: HYDROmorphone 0.5 MG/0.5 ML Syringe IM ONE (18:18)
--- NOTE | 2020-08-11 18:21 | EDM.PDOC ---
ED HPI GENERAL MEDICAL PROBLEM - General Chief Complaint: Chest Pain Stated Complaint: RIB INJURY Time Seen by Provider: 08/11/20 18:09 Source of Information: Reports: Patient, RN Notes Reviewed History Limitations: Reports: No Limitations - History of Present Illness INITIAL COMMENTS - FREE TEXT/NARRATIVE: Patient is a 39-year-old female who presents to the ED for the evaluation of her left lower chest pain. Patient notes that she was drinking alcohol last night with her friend, when they fell onto a coffee table, she struck the left lower margin of her rib cage. Patient states she has been having pain since then she is been using some Tylenol ibuprofen [id number] but nothing seems to be helping much. She is not complaining of any abdomen pain, she states she had a little bit of vomiting when the pain seems to be at its worst. She is not complaining any fevers or chills, cough or shortness of breath, nausea/vomiting/diarrhea. 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 ED EXAM, GENERAL - Physical Exam Exam: See Below Exam Limited By: No Limitations General Appearance: Alert, WD/WN, No Apparent Distress Respiratory/Chest: No Respiratory Distress, Lungs Clear, Normal Breath Sounds, No Accessory Muscle Use, Other (chest tender along Left lower rib cage border) Cardiovascular: Normal Peripheral Pulses, Regular Rate, Rhythm, No Edema Neurological: Alert, Oriented, Normal Cognition, No Motor/Sensory Deficits Psychiatric: Normal Affect, Normal Mood Skin Exam: Warm, Dry, Intact, Normal Color, No Rash Course - Vital Signs Last Recorded V/S: Last Vital Signs Temp 99.2 F 08/11/20 17:01 Pulse 79 08/11/20 17:01 Resp 16 08/11/20 17:01 BP 161/97 H 08/11/20 17:01 Pulse Ox 96 08/11/20 17:01 - Orders/Labs/Meds Orders: Active Orders 24 hr Category Date Time Status Incentive Spirometry [RT Incentive Spirometry] [RC] Care 08/11/20 19:08 Active Q1HWA Meds: Medications Discontinued Medications Generic Name Dose Route Start Last Admin Trade Name Judy PRN Reason Stop Dose Admin Hydromorphone HCl 0.5 mg 08/11/20 18:18 08/11/20 18:35 Hydromorphone 0.5 Mg/0.5 Ml Syringe IM 08/11/20 18:19 0.5 mg ONETIME ONE Administration - Re-Assessments/Exams Free Text/Narrative Re-Assessment/Exam: 08/11/20 18:21 Patient presents to the ED for her rib cage pain, for today's purposes we will go ahead and get some x-rays to see if there is any fractures apparent. We will give her 0.5 mg IM Dilaudid for her pain management at this time. Patient verbalized understanding of this plan. 08/11/20 19:04 X-rays demonstrate a mildly displaced fracture and probable nondisplaced fracture within the seventh and eighth ribs as noted above. There is a questionable fracture within the inferior scapula, please correlate if the patient is symptomatic to this region, on initial exam she did not complain of any pain in that area and was painful only on the left lower rib margin. No other acute injuries were found on the x-rays. Departure - Departure Time of Disposition: 19:09 Disposition: Home, Self-Care 01 Condition: Good Clinical Impression: Ribs, multiple fractures Qualifiers: Encounter type: initial encounter Fracture type: closed Laterality: left Qualified Code(s): S22.42XA - Multiple fractures of ribs, left side, initial encounter for closed fracture - Discharge Information *PRESCRIPTION DRUG MONITORING PROGRAM REVIEWED*: Yes *COPY OF PRESCRIPTION DRUG MONITORING REPORT IN PATIENT PRASAD: No Prescriptions: Acetaminophen/oxyCODONE [Percocet 325-5 MG] 1 each PO Q6H PRN #20 tab PRN Reason: Pain Instructions: Rib Fracture, [id number] Referrals: Lisseth Klein, [employer] [employer] [Primary Care Provider] - Forms: ED Department Discharge, ED Return to Work/School Form Additional Instructions: You have been evaluated in the ED for your left rib cage pain. Your x-ray demonstrated a mildly displaced fracture and probable nondisplaced fracture within the seventh and eighth ribs respectively. Please use ice/heat as tolerated to the affected area. You were given an incentive spirometer, this is to help make you take deep breaths while you are in pain, to help prevent pneumonia. Please do 10 reps every hour while awake. You will need to take 10 deep inhalations for this to be effective. You may take Tylenol 500 mg or ibuprofen 600mg q6 hrs for pain relief. Please do so until you have a tolerable level of pain with activity. Do not exceed 4000mg Tylenol, Do not exceed 3200mg ibuprofen in a 24 hour time period. You were given a prescription for a strong pain medication, oxycodone/acetaminophen 5/325, please take 1 tab every 6 hours as needed for pain not relieved by Tylenol or ibuprofen alone. Please note this does contain Tylenol in it, so do not take more than 4000 mg in a 24-hour time span. These medications can be addictive, so please take as few as possible to achieve adequate pain control. These meds can also be quite constipating, recommend that you increase your oral fluid intake and take a stool softener like MiraLAX while taking these medications. Please return to ED if your symptoms should change or worsen. Sepsis Event Note (ED) - Evaluation Sepsis Screening Result: No Definite Risk - Focused Exam Vital Signs: Vital Signs Temp Pulse Resp BP Pulse Ox 08/11/20 17:01 99.2 F 79 16 161/97 H 96 - My Orders Last 24 Hours: My Active Orders 08/11/20 19:08 Incentive Spirometry [RT Incentive Spirometry] [RC] Q1HWA - Assessment/Plan Last 24 Hours: My Active Orders 08/11/20 19:08 Incentive Spirometry [RT Incentive Spirometry] [RC] Q1HWA
--- NOTE | 2020-08-11 18:56 | CR ---
Chest and left ribs: Frontal view of the chest was obtained in PA projection. 2 views of the left ribs were also obtained. Slightly displaced fracture is seen within the anterolateral seventh rib. Probable nondisplaced fracture is noted within the eighth rib. No additional rib fracture is seen. On one view there is a lucent line being seen within the inferior scapula. This could be artifact but difficult to completely exclude a minimal fracture. Heart size and mediastinum are normal. Lungs are clear. No discrete pneumothorax is seen. Impression: 1. Mildly displaced fracture and probable nondisplaced fracture within the seventh and eighth ribs as noted above. 2. Questionable fracture within the inferior scapula. Please correlate if patient is symptomatic to this region. 3. Nothing acute is otherwise seen on frontal chest x-ray. No pneumothorax is seen. Diagnostic code #3
== END 2020-08-11 19:45 | disposition home or self-care (01) ==
LOC: JD.ED 16:40
DX: S22.42XA Multiple fractures of ribs, left side, initial encounter for closed fracture (principal); Z79.899 Other long term (current) drug therapy; W22.8XXA Striking against or struck by other objects, initial encounter
CPT/HCPCS: 71101; 96372; 99283; J1170

== ENCOUNTER 2021-01-29 10:08 | Emergency (ER) | payer MEDICAID ==
--- NOTE | 2021-01-29 11:01 | EDM.PDOC ---
ED HPI GENERAL MEDICAL PROBLEM - General Chief Complaint: Chest Pain Stated Complaint: CHEST PAIN/SOB Time Seen by Provider: 01/29/21 10:27 Source of Information: Reports: Patient History Limitations: Reports: No Limitations - History of Present Illness INITIAL COMMENTS - FREE TEXT/NARRATIVE: The patient presents with chest pain and shortness of breath. This started yesterday with shortness of breath. [facility] in [place] and a COVID screen. That is a send out and that will take 2 days to get back. She then developed chest pain this morning. She went to the [facility] at [place] and they did the rapid 15 minute COVID 19 test and it was negative. She has a fever and chills at times. She has a slight cough. She has no abdominal pain, nausea, vomiting or diarrhea. She does not smoke. She does have a history of hypercholesterolemia. She is not on any medications. Her blood pressure was elevated when she first arrived. Onset: Gradual Duration: Day(s): (yesterday) Location: Reports: Chest Quality: Reports: Sharp Severity: Moderate Improves with: Reports: None Worsens with: Reports: None Associated Symptoms: Reports: Chest Pain, Cough, Fever/Chills, Shortness of Breath. Denies: Headaches, Nausea/Vomiting Upper Chest Pain Score (Numeric/FACES): 2 - Related Data Allergies Allergy/AdvReac Type Severity Reaction Status Date / Time No Known Allergies Allergy Verified 01/29/21 10:22 Home Meds: Home Meds . 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 Denies: Fever HEENT: Reports: No Symptoms Respiratory: Reports: Shortness of Breath, Cough Cardiovascular: Reports: Chest Pain Endocrine: Reports: No Symptoms GI/Abdominal: Reports: No Symptoms : Reports: No Symptoms Musculoskeletal: Reports: No Symptoms ED EXAM, GENERAL - Physical Exam Exam: See Below Exam Limited By: No Limitations General Appearance: Alert, No Apparent Distress Ears: Normal External Exam Nose: Normal Inspection Head: Atraumatic, Normocephalic Neck: Normal Inspection Respiratory/Chest: No Respiratory Distress, Lungs Clear, Normal Breath Sounds Cardiovascular: Regular Rate, Rhythm, No Edema, No Murmur GI/Abdominal: Soft, Non-Tender, No Organomegaly, No Mass Back Exam: Normal Inspection Extremities: Normal Inspection Neurological: Alert, Oriented, No Motor/Sensory Deficits #1 Interpretation EKG Date: 01/29/21 Time: 10:18 Rhythm: NSR Rate (Beats/Min): 70 Pryor: LAD-Left Pryor Deviation P-Wave: Present QRS: Normal ST-T: Normal QT: Normal Course - Vital Signs Last Recorded V/S: Last Vital Signs Temp 97.4 F 01/29/21 10:18 Pulse 67 01/29/21 10:18 Resp 18 01/29/21 10:18 BP 182/107 H 01/29/21 10:18 Pulse Ox 100 01/29/21 10:18 - Orders/Labs/Meds Orders: Active Orders 24 hr Category Date Time Status Chest 1V Frontal [CR] Stat Exams 01/29/21 10:28 Taken Labs: Laboratory Tests 01/29/21 01/29/21 01/29/21 Range/Units 10:45 10:49 10:49 WBC 5.74 (3.98-10.04) K/mm3 RBC 4.91 (3.98-5.22) M/mm3 Hgb 13.5 (11.2-15.7) gm/dl Hct 41.7 (34.1-44.9) % MCV 84.9 (79.4-94.8) fl MCH 27.5 (25.6-32.2) pg MCHC 32.4 (32.2-35.5) g/dl RDW Std Deviation 43.0 (36.4-46.3) fL Plt Count 306 (182-369) K/mm3 MPV 10.1 (9.4-12.3) fl Neut % (Auto) 40.5 (34.0-71.1) % Lymph % (Auto) 44.9 (19.3-51.7) % [place] % (Auto) 6.8 (4.7-12.5) % Eos % (Auto) 7.3 H (0.7-5.8) Baso % (Auto) 0.5 (0.1-1.2) % Neut # (Auto) 2.32 (1.56-6.13) K/mm3 Lymph # (Auto) 2.58 (1.18-3.74) K/mm3 [place] # (Auto) 0.39 H (0.24-0.36) K/mm3 Eos # (Auto) 0.42 H (0.04-0.36) K/mm3 Baso # (Auto) 0.03 (0.01-0.08) K/mm3 D-Dimer, Quantitative 0.31 (0.19-0.50) mg/L Sodium 141 (136-145) mEq/L Potassium 3.5 (3.5-5.1) mEq/L Chloride 104 (98-107) mEq/L Carbon Dioxide 23 (21-32) mEq/L Anion Gap 17.5 H (5-15) BUN 12 (7-18) mg/dL Creatinine 0.8 (0.55-1.02) mg/dL Est Cr Clr Drug Dosing 91.81 mL/min Estimated GFR (MDRD) > 60 (>60) mL/min BUN/Creatinine Ratio 15.0 (14-18) Glucose 95 (70-99) mg/dL Calcium 8.8 (8.5-10.1) mg/dL Total Bilirubin 0.3 (0.2-1.0) mg/dL AST 14 L (15-37) U/L ALT 24 (14-59) U/L Alkaline Phosphatase 94 (46-116) U/L Troponin I < 0.017 (0.00-0.056) ng/mL NT-Pro-B Natriuret Pep (0-125) pg/mL Total Protein 7.5 (6.4-8.2) g/dl Albumin 3.8 (3.4-5.0) g/dl Globulin 3.7 gm/dL Albumin/Globulin Ratio 1.0 (1-2) SARS-CoV-2 RNA (FELICITAS) (NEGATIVE) 08/31/21 08/31/21 Range/Units 10:49 10:50 WBC (3.98-10.04) K/mm3 RBC (3.98-5.22) M/mm3 Hgb (11.2-15.7) gm/dl Hct (34.1-44.9) % MCV (79.4-94.8) fl MCH (25.6-32.2) pg MCHC (32.2-35.5) g/dl RDW Std Deviation (36.4-46.3) fL Plt Count (182-369) K/mm3 MPV (9.4-12.3) fl Neut % (Auto) (34.0-71.1) % Lymph % (Auto) (19.3-51.7) % [place] % (Auto) (4.7-12.5) % Eos % (Auto) (0.7-5.8) Baso % (Auto) (0.1-1.2) % Neut # (Auto) (1.56-6.13) K/mm3 Lymph # (Auto) (1.18-3.74) K/mm3 [place] # (Auto) (0.24-0.36) K/mm3 Eos # (Auto) (0.04-0.36) K/mm3 Baso # (Auto) (0.01-0.08) K/mm3 D-Dimer, Quantitative (0.19-0.50) mg/L Sodium (136-145) mEq/L Potassium (3.5-5.1) mEq/L Chloride (98-107) mEq/L Carbon Dioxide (21-32) mEq/L Anion Gap (5-15) BUN (7-18) mg/dL Creatinine (0.55-1.02) mg/dL Est Cr Clr Drug Dosing mL/min Estimated GFR (MDRD) (>60) mL/min BUN/Creatinine Ratio (14-18) Glucose (70-99) mg/dL Calcium (8.5-10.1) mg/dL Total Bilirubin (0.2-1.0) mg/dL AST (15-37) U/L ALT (14-59) U/L Alkaline Phosphatase (46-116) U/L Troponin I (0.00-0.056) ng/mL NT-Pro-B Natriuret Pep 28 (0-125) pg/mL Total Protein (6.4-8.2) g/dl Albumin (3.4-5.0) g/dl Globulin gm/dL Albumin/Globulin Ratio (1-2) SARS-CoV-2 RNA (FELICITAS) Negative (NEGATIVE) - Re-Assessments/Exams Free Text/Narrative Re-Assessment/Exam: 01/29/21 11:02 I ordered an EKG, CXR, labs and COVID 19. Her EKG shows a NSR with no acute changes. 01/29/21 13:21 Her CXR looks good. Her CBC and CMP look good. Her troponin is negative. I do not feel this is her head. COVID 19 is negative. 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 Take tylenol or motrin as needed for any fever or pain. Follow up with Lisseth within a week. Please return if you are worse. Sepsis Event Note (ED) - Evaluation Sepsis Screening Result: No Definite Risk - Focused Exam Vital Signs: Vital Signs Temp Pulse Resp BP Pulse Ox 01/29/21 10:18 97.4 F 67 18 182/107 H 100 - My Orders Last 24 Hours: My Active Orders 01/29/21 10:28 Chest 1V Frontal [CR] Stat - Assessment/Plan Last 24 Hours: My Active Orders 01/29/21 10:28 Chest 1V Frontal [CR] Stat
--- NOTE | 2021-01-29 15:44 | CR ---
Chest: AP view of the chest was obtained. Comparison: Prior chest study of 08/11/20. Heart size and mediastinum are normal. Slight scoliosis is noted within the spine with mild degenerative change also seen within the spine. Lungs are clear with no acute parenchymal change. Impression: 1. Incidental findings. 2. Nothing acute is seen on portable chest x-ray. Diagnostic code #2
== END 2021-01-29 13:25 | disposition home or self-care (01) ==
LOC: JD.ED 10:08
DX: R07.89 Other chest pain (principal); Z20.822 Contact with and (suspected) exposure to COVID-19
CPT/HCPCS: 36415; 71045; 71045-26; 80053; 83880; 84484; 85025; 85379; 93005; 93010; 99283; 99285-25; U0002

== ENCOUNTER 2022-02-11 06:48 | Day surgery (SDC) | payer MEDICAID ==
[~2022-02-11 06:48] MED LIST: Lactated Ringers 1,000 ML IV SCH; Lidocaine 1%/Sod Bicarbonate in NS 8.4% 1 ML Syringe IDERM PRN; Sodium Chloride 0.9% 10 ML Syringe FLUSH PRN; Sodium Chloride 0.9% 10 ML Syringe FLUSH SCH
[2022-02-11] MEDS ORDERED: Lidocaine 1% 4 ML ONE (06:59)
[2022-02-11] MEDS ORDERED: Propofol 200 MG/20 ML SDV ONE ×2 (06:59→08:42)
[2022-02-11] MEDS ORDERED: Midazolam 1 MG/ML 2 ML SDV ONE ×2 (06:59→08:42)
[2022-02-11] MEDS ORDERED: fentaNYL 100 MCG/2 ML SDV ONE (06:59)
[2022-02-11] MEDS ORDERED: Ondansetron 4 MG/2 ML SDV ONE (08:42)
[2022-02-11] MEDS ORDERED: Rocuronium 50 MG/5 ML Vial ONE (08:42)
[2022-02-11] MEDS ORDERED: ceFAZolin 2 GM Vial ONE (08:42)
[2022-02-11] MEDS ORDERED: Dexamethasone 4 MG/ML 5 ML MDV ONE (08:42)
[2022-02-11] MEDS ORDERED: Lidocaine 1% 5 ML VIAL ONE (08:42)
[2022-02-11] MEDS ORDERED: fentaNYL 250 MCG/5 ML SDV ONE (08:42)
[2022-02-11] MEDS ORDERED: Ketamine 500 mg/10 ML MDV ONE (09:22)
[2022-02-11] MEDS ORDERED: Phenylephrine HCl In 0.9% NaCl 1 MG/10 ML Vial ONE (09:30)
[2022-02-11] MEDS ORDERED: Lactated Ringers 1,000 ML ONE ×2 (09:55→11:19)
[2022-02-11] MEDS ORDERED: HYDROmorphone 0.5 MG/0.5 ML Syringe ONE (10:14)
[2022-02-11] MEDS ORDERED: Neostigmine Methylsulfate 10 MG/10 ML MDV ONE (10:35)
[2022-02-11] MEDS ORDERED: Ketorolac 30 MG/ML SDV ONE (11:14)
== END 2022-02-11 09:07 | disposition home or self-care (01) ==
LOC: JD.SDS 06:48
PROVIDERS: ATTEND Surgery
DX: R10.32 Left lower quadrant pain (principal); F41.8 Other specified anxiety disorders; K42.9 Umbilical hernia without obstruction or gangrene; D64.9 Anemia, unspecified; Z79.899 Other long term (current) drug therapy; Z98.890 Other specified postprocedural states; Z87.891 Personal history of nicotine dependence
CPT/HCPCS: 45380; 81025; J2250; J2704; J3010; J7120; 00812; J0690; J1100; J1170; J1885; J2405; J2710; J3490